=== PATIENT | male | born 1955 | race Caucasian/White ===

== ENCOUNTER 2023-07-06 11:43 | Emergency (ER) | payer MEDICARE, BC, SELFPAY ==
[2023-07-06] VITALS (7 sets, daily range): BP systolic 113–137; BP diastolic 70–86; BMI 26.1
--- NOTE | 2023-07-06 14:58 | ED.GENMED ---
History of Present Illness
General
Chief Complaint: Musculo-Skeletal Complaint
Source: patient
Exam Limitations: none
Time Seen by Provider: 07/06/23 12:49
Nursing documentation reviewed up to this point in time: agreed with
Travel History
Have you had any contact with someone who has COVID-19?: No
Do you have any symptoms of coronavirus? Fever > 100 degrees, chills, cough, shortness of breath, sore throat, loss of taste or smell, muscle aches, or headache?: No
History of Present Illness
History of Present Illness:
Patient presents to ED secondary to possible right shoulder dislocation, after he heard popping sensation when he was moving lacrosse rebound stand. Denies direct trauma. Denies loss of sensation or weakness. Patient had 1 additional episode of
dislocation last year, which resolved spontaneously. Patient did receive right shoulder surgery at [facility] last year.
Past History
Past History
ED Past Medical History: Arrthythmia (afib), GERD and HTN
ED Past Surgical History: Cardiac (ablation, pacemaker), Orthopedic and Other (hernia repair, silicone implant right eye)
Review of Systems
Review of Systems
Allergies reviewed?: Yes
All Other Systems: ROS reviewed and negative except as documented in HPI and ROS
Constitutional: Reports no symptoms
Musculoskeletal: Reports other (Shoulder pain)
Skin: Reports no symptoms
Neurological: Reports no symptoms; Denies weakness or numbness
Phy Exam
Physical Exam
Physical Exam:
Physical Exam
General: mild painful distress, not acutely ill. afebrile
Head: nc/at. eomi
Neck: supple. no meningeal signs.
Neuro: alert and oriented. no focal neurological deficits
Skin: no rash
Psychiatric: well kept. interactive and cooperative
Extremities: right shoulder soft tissue defect with tenderness to palpation.
Course
Orders/Labs/Results
Orders:
Orders
07/06/23 11:53
CR Shoulder, Trauma - Right Urgent
Comment:
Reason For Exam: injury/pain
07/06/23 13:05
Propofol [Diprivan] 20 ml .ROUTE .STK-MED
07/06/23 13:36
CR Shoulder - Right Min 2 View Urgent
Comment: portable
Reason For Exam: post reduction
Vital Signs
Initial and Last Documented VS:
Initial Vital Signs
Temp Pulse Resp BP Pulse Ox
97.9 F 69 16 137/86 97
07/06/23 11:47 07/06/23 11:47 07/06/23 11:47 07/06/23 11:47 07/06/23 11:47
Last Documented Vital Signs
Temp Pulse Resp BP Pulse Ox
98.2 F 61 18 123/76 97
07/06/23 14:10 07/06/23 14:10 07/06/23 14:10 07/06/23 14:10 07/06/23 14:10
Procedures
Moderate Sedation
ASA Risk Score: Class I
Chart and allergies reviewed: Yes
Consent for anesthesia obtained: Yes
Time out completed (validating right patient & procedure): Yes
History of difficult intubation: No
Airway free of obstruction: Yes
Patient has a gag reflex: Yes
Patient is able to open mouth: Yes
Patient has no dentures: Yes
Patient has no loose teeth: Yes
Medication administered by Provider during Moderate Sedation: IV Propofol (mg)
Total dose administered: 130
Time drug administered: 13:24
Start Time: 13:24
Stop Time: 13:40
Joint/Fracture Reduction
Right Shoulder:
Indication for procedure:: Shoulder dislocation
Procedure completed by: Arie Beth M.D.
Consent form signed: Yes
Anesthesia/sedation: Moderate sedation
Injury was: closed
Further treatement: no treatment needed
Post reduction exam: stable
Capillary Refill: normal
Normal distal neurovascular exam?: Yes
MDM/Problems Addressed
MDM/Problems Addressed:
X-ray report reviewed.
Procedural consent on the chart.
Shoulder successfully reduced after sedation and with external rotation
Patient placed on arm sling and is neurovascular intact, at time of discharge to the care of his . Patient will follow-up with his orthopedic surgeon as an outpatient. Patient given copy of x-ray on disc prior to discharge.
*Critical Care Note
Total Time (30-74mins, 75-104mins- exclusive of procedures): Not Applicable
ED Attending Note
-
Portions of this chart may have been created with voice recognition software.� Occasional wrong word or��sound alike� substitutions may have occurred due to the inherent limitations of voice recognition software.
Discharge Plan
Departure
Patient Disposition: Home (Routine Discharge)
Date of Disposition: 07/06/23
Time of Disposition: 14:58
Patient with high blood pressure during this ER visit?: Yes
Discharge Problem:
Dislocation of shoulder
Instructions: Shoulder Dislocation (DC), How to Use a Shoulder Sling
Referrals:
Sheila Calderón, [Family Provider] -
Activity Restrictions/Additional Instructions:
As discussed, please follow-up with your orthopedic surgeon for further evaluation and treatment.
Interventions
Interventions:
*Risk Screen - Suicide Last Done: 07/06/23 11:47
*General Assessment Last Done: 07/06/23 12:33
*Neglect/Abuse Screening Last Done: 07/06/23 11:47
ED- Fall Risk Assessment Last Done: 07/06/23 13:45
*ED COVID-19 Vaccine History Last Done: 07/06/23 11:47
*Nursing Disposition Last Done: 07/06/23 15:07
ED-Musculoskeletal Assessment Last Done: 07/06/23 12:35
Discharge Date and Time
Discharge Date/Time: 07/06/23 15:08
Print Language: FRISIAN
== END 2023-07-06 15:08 | disposition home or self-care (01) ==
LOC: EMR 11:43
PROVIDERS: EMERGENCY PHYSICIAN Emergency Medicine; FAMILY PHYSICIAN Family Medicine
DX: S43.004A Unspecified dislocation of right shoulder joint, initial encounter (principal); X58.XXXA Exposure to other specified factors, initial encounter; I48.91 Unspecified atrial fibrillation; K21.9 Gastro-esophageal reflux disease without esophagitis; I10 Essential (primary) hypertension; Z95.0 Presence of cardiac pacemaker; Z96.611 Presence of right artificial shoulder joint
CPT/HCPCS: 99283; 23650; 99152; 73030

== ENCOUNTER 2023-12-02 14:03 | Emergency (ER) | payer MEDICARE, BC, SELFPAY ==
[2023-12-02] VITALS (17 sets, daily range): BP systolic 114–147; BP diastolic 59–91; BMI 27.0
--- NOTE | 2023-12-02 14:50 | ED.GENMED ---
History of Present Illness
<Gerardo Daniels PA-C - Last Filed: 12/02/23 21:01>
General
Chief Complaint: Musculo-Skeletal Complaint
Time Seen by Provider: 12/02/23 14:46
History of Present Illness
History of Present Illness:
68-year-old male presents to the emergency department for evaluation of right shoulder injury, he was attempting to lift a heavy bag from his body when he felt his shoulder dislocate. 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 In
2 weeks he is scheduled for revision surgery at [facility].
Past History
<ERNESTO Russo Last Filed: 12/02/23 21:01>
Past History
ED Past Medical History: Arrthythmia (afib), GERD and HTN
ED Past Surgical History: Cardiac (ablation, pacemaker), Orthopedic and Other (hernia repair, silicone implant right eye)
Review of Systems
<ERNESTO Russo Last Filed: 12/02/23 21:01>
Review of Systems
Allergies reviewed?: Yes
All Other Systems: ROS reviewed and negative except as documented in HPI and ROS
Phy Exam
<ERNESTO Russo Last Filed: 12/02/23 21:01>
Physical Exam
Physical Exam:
GEN: Well appearing, NAD, WDWN
HEENT: Oral mucosa moist, no scleral icterus
Cardiac: Regular rate
Lung: No respiratory distress, no tachypnea
MSK: Obvious deformity of the right shoulder consistent with dislocation, sensation to the axillary nerve distribution is intact in right hand range of motion is normal
Skin: Good color, no pallor or jaundice, no rashes
Neuro: AO x3, moves all extremities freely
Psych: Calm, cooperative
Course
<ERNESTO Russo Last Filed: 12/02/23 21:01>
Orders/Labs/Results
Orders:
Orders
12/02/23 14:48
CR Shoulder - Right Min 2 View Urgent
Comment:
Reason For Exam: dislocation
12/02/23 15:40
Propofol [Diprivan] 20 ml .ROUTE .STK-MED
12/02/23 16:08
HYDROmorphone [Dilaudid] 0.5 mg IV NOW STA
12/02/23 16:55
HYDROmorphone [Dilaudid] 0.5 mg IV NOW STA
12/02/23 18:16
HYDROmorphone [Dilaudid] 0.5 mg IV NOW STA
Vital Signs
Initial and Last Documented VS:
Initial Vital Signs
Temp Pulse Resp Pulse Ox
98.0 F 67 16 98
12/02/23 14:14 12/02/23 14:14 12/02/23 14:14 12/02/23 14:14
Last Documented Vital Signs
Temp Pulse Resp BP Pulse Ox
97.6 F 69 27 142/83 95
12/02/23 16:20 12/02/23 17:51 12/02/23 17:51 12/02/23 18:24 12/02/23 16:35
<Arie Beth MD - Last Filed: 12/02/23 16:11>
Orders/Labs/Results
Orders:
Orders
12/02/23 14:48
CR Shoulder - Right Min 2 View Urgent
Comment:
Reason For Exam: dislocation
12/02/23 15:40
Propofol [Diprivan] 20 ml .ROUTE .STK-MED
12/02/23 16:08
HYDROmorphone [Dilaudid] 0.5 mg IV NOW STA
12/02/23 16:55
HYDROmorphone [Dilaudid] 0.5 mg IV NOW STA
12/02/23 18:16
HYDROmorphone [Dilaudid] 0.5 mg IV NOW STA
Vital Signs
Initial and Last Documented VS:
Initial Vital Signs
Temp Pulse Resp Pulse Ox
98.0 F 67 16 98
12/02/23 14:14 12/02/23 14:14 12/02/23 14:14 12/02/23 14:14
Last Documented Vital Signs
Temp Pulse Resp BP Pulse Ox
97.6 F 69 27 142/83 95
12/02/23 16:20 12/02/23 17:51 12/02/23 17:51 12/02/23 18:24 12/02/23 16:35
Procedures
<Gerardo Daniels PA-C - Last Filed: 12/02/23 21:01>
Moderate Sedation
ASA Risk Score: Class II
Chart and allergies reviewed: Yes
Consent for anesthesia obtained: Yes
Time out completed (validating right patient & procedure): Yes
Moderate Sedation Start Time(when first medication is given): 15:55
History of difficult intubation: No
Airway free of obstruction: Yes
Patient has a gag reflex: Yes
Patient is able to open mouth: Yes
Patient has no dentures: Yes
Patient has no loose teeth: Yes
Medication administered by Provider during Moderate Sedation: IV Propofol (mg)
Total dose administered: 200
Time drug administered: 15:55
Moderate Sedation Procedure End Time: 16:05
Joint/Fracture Reduction
Right Shoulder:
Indication for procedure:: dislocated R total shoulder prosthesis
Procedure completed by: Gerardo Daniels PA-C
Consent form signed: Yes
Joint reduced: with anesthesia sedation
Injury was: closed
Further treatement: needs further treatment
Additional information:
Unsuccessful reduction
<Gerardo Daniels PA-C - Last Filed: 12/02/23 21:01>
MDM/Problems Addressed
MDM/Problems Addressed:
Reduction was unsuccessful. I initially discussed the case with orthopedics locally who recommend we discussed with the patient's orthopedist at [facility]. Eventually I was able to communicate with on-call nurse practitioner through [facility] for patient's orthopedic surgeon Dr. Ramirez, after lengthy discussion the plan will be to discharge the patient to the care of his to drive him to the hospital where orthopedics will attempt closed reduction in the emergency
department there followed by open reduction if necessary. Patient remained stable at time of discharge
<Gerardo Daniels PA-C - Last Filed: 12/02/23 21:01>
*Critical Care Note
Total Time (30-74mins, 75-104mins- exclusive of procedures): Not Applicable
ED Attending Note
<Gerardo Daniels PA-C - Last Filed: 12/02/23 21:01>
-
Portions of this chart may have been created with voice recognition software.� Occasional wrong word or��sound alike� substitutions may have occurred due to the inherent limitations of voice recognition software.
<Arie eBth MD - Last Filed: 12/02/23 16:11>
ED Attending Note
Patient seen and examined by attending physician: Yes
ED Attending Note:
Patient presents to ED secondary to recurrent right shoulder dislocation, shortly prior to arrival. As patient has had number of similar symptoms in the past, along with previous shoulder surgery, patient is scheduled for revision with her
orthopedic surgeon next month. Denies direct trauma. Denies loss of sensation or weakness.
Physical Exam
General: mild painful distress, not acutely ill. afebrile
Head: nc/at. eomi
Neck: supple. no meningeal signs.
Neuro: alert and oriented. no focal neurological deficits
Skin: no rash
Psychiatric: well kept. interactive and cooperative
Extremities: diffuse right shoulder tenderness to palpation, along with well-healed surgical scar.
History, exam, and x-ray consistent with recurrent dislocation. Procedural consent on the chart.
Shoulder reduction attempted in ED after sedation, without success. Will consult orthopedic surgery
Discharge Plan
Departure
Patient Disposition: Home (Routine Discharge)
Date of Disposition: 12/02/23
Time of Disposition: 17:55
Patient with high blood pressure during this ER visit?: No
Discharge Problem:
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
Referrals:
NONE,* [Active] -
Activity Restrictions/Additional Instructions:
Lamont was given a total of 200mg propofol with unsuccessful attempt at reduction
Interventions
Interventions:
*Risk Screen - Suicide Last Done: 12/02/23 15:00
*General Assessment Last Done: 12/02/23 15:00
*Neglect/Abuse Screening Last Done: 12/02/23 18:45
ED- Fall Risk Assessment Last Done: 12/02/23 18:45
*ED COVID-19 Vaccine History Last Done: 12/02/23 15:00
*Nursing Disposition Last Done: 12/02/23 18:45
ED-Musculoskeletal Assessment Last Done: 12/02/23 16:32
Discharge Date and Time
Discharge Date/Time: 12/02/23 18:45
Print Language: PASHTO
[2023-12-02] MEDS: DILAUDID 0.5 MG IV ×3 (16:11→18:26)
== END 2023-12-02 18:45 | disposition home or self-care (01) ==
LOC: EMR 14:03
PROVIDERS: EMERGENCY PHYSICIAN Emergency Medicine; FAMILY PHYSICIAN Family Medicine
DX: T84.028A Dislocation of other internal joint prosthesis, initial encounter (principal); X50.0XXA Overexertion from strenuous movement or load, initial encounter; Y79.2 Prosthetic and other implants, materials and accessory orthopedic devices associated with adverse incidents; Z96.611 Presence of right artificial shoulder joint
CPT/HCPCS: 99285; 96374; 23650; 96376; 99152; 73030

== ENCOUNTER → 2024-04-06 08:51 | Day surgery (SDC) | payer MEDICARE, BC, SELFPAY ==
[2024-04-06 10:38] LABS: % Basophils 1.6 % (0-2); % Eosinophils 2.7 % (0-6); % Immature Granulocytes 0.2 % (0-0.5); % Lymphocytes 40.8 % (20.5-51.1); % Neutrophils 44.7 % (42.2-75.2); Absolute Basophils 0.1 10^3/uL (0-0.2); Absolute Eosinophils 0.1 10^3/uL (0-0.7); Absolute Lymphocytes 1.8 10^3/uL (1.2-3.4); Absolute Monocytes 0.5 10^3/uL (0.1-0.6); Hematocrit 41.4 % (39.0-52.0); Hemoglobin 14.6 g/dL (13.0-18.0); Mean Corp Hgb Conc. 35.3 g/dL (33.0-37.0); Mean Corpuscular Hgb 32.8 pg (27.0-31.0); Mean Platelet Volume 10.2 fL (7.4-10.4); Nucleated Red Blood Cells % 0 % (-); Platelet Count 228 10^3/uL (130-400); Red Blood Cell Count 4.45 10^6/uL (4.70-6.10); Red Cell Dist. Width 12.1 % (11.5-14.5); White Blood Cell Count 4.5 10^3/uL (4.8-10.8)
[2024-04-06 12:11] LABS: Blood Urea Nitrogen 25 mg/dl (9-20); Calcium 9.4 mg/dl (8.4-10.2); Carbon Dioxide 26 mmol/L (22-30); Chloride 100 mmol/L (98-107); Glucose 83 mg/dl (70-99); Potassium 4.8 mmol/L (3.5-5.1); Sodium 137 mmol/L (135-145); eGFR > 60.00
== END ==
LOC: SDSPAT 08:51
PROVIDERS: ATTENDING PHYSICIAN Orthopaedic Surgery; FAMILY PHYSICIAN Family Medicine
DX: Z01.810 Encounter for preprocedural cardiovascular examination (principal); Z01.812 Encounter for preprocedural laboratory examination; I44.0 Atrioventricular block, first degree
CPT/HCPCS: 93005; 36415; 80048; 85025

== ENCOUNTER 2024-04-18 05:56 | Day surgery (SDC) | payer MEDICARE, BC, SELFPAY ==
[2024-04-06 13:33] VITALS: BMI 25.9
[2024-04-18] VITALS (10 sets, daily range): BP systolic 101–120; BP diastolic 6–82; BMI 25.9
[2024-04-18] MEDS: TYLENOL 1000 MG PO (06:34)
[2024-04-18] MEDS: CELEBREX 200 MG PO (06:34)
[2024-04-18] MEDS: NORMOSOL-R/PLASMALYTE-A 1000 IV (06:34)
[2024-04-18] MEDS: SUBLIMAZE 25 MCG IV ×2 (08:31→08:43)
--- NOTE | 2024-04-18 09:20 | SUR.PHASEI ---
patient in pacu - initially sedate with oral airway in place, vss, paced rhythm. awake and airway out. laughing, joking, ' how much can I get for pain?' questioned what pain level is - states 6/10 - also states this is what pain was at home -
taking tramadol. Explained that he has received narcotics and local. Given Fentanyl 25mcg x2 for pain - pain down to 2/10 - anxious for coffee.
--- NOTE | 2024-04-18 15:20 | OR.RPT ---
Operative Report
Operative Report
DATE OF OPERATION: 04/18/2024
PREOPERATIVE DIAGNOSES: Complex medial meniscus tear, left knee
POSTOPERATIVE DIAGNOSES: Same
OPERATION PERFORMED: Surgical arthroscopy of left knee with partial medial meniscectomy
SURGEON: Dung De Leon MD
ASSISTANTS: NA
ANESTHESIA: General
COMPLICATIONS: None
SPECIMINE: culture x1
ESTIMATED BLOOD LOSS: 5mL
TOURNIQUET TIME: NA
Findings: See below
INDICATIONS: The patient presented to my office with acute onset posteromedial left knee pain with limited range of motion after an injury. Exam showed pain over medial joint line with effusion. Xrays showed no signs of advanced arthritis. MRI
showed a complex tear of the medial meniscus with displaced fragment to meniscofemoral recess. MRI showed signs of minimal areas of full thickness wear. Signs and symptoms were consistent with diagnosis of symptomatic medial meniscus tear. The
patient failed to improve with nonoperative treatmetns and was determined to be an appropriate candidate for surgical arthroscopy of the left knee with partial medial meniscectomy. I discussed treatment options with the patient including both
nonoperative and operative treatments. Shared decision was to proceed with surgical treatment. We reviewed the natural history of the problem, as well as the risks, benefits, and alternatives of various treatment options. The patient understood the
risks including, but were not limited to, bleeding, infection, failure to relieve pain, more pain than preop, damage to blood vessels and nerves, need for reoperation, , wound healing problems, stiffness, instability, blood clot, pulmonary
embolism, myocardial infarction, pneumonia, arrhythmia, CVA, and . The patient accepted these risks and wished to proceed. We discussed that his MRI did show some articular cartilage wear which may cause chronic arthritis-related pain, but that
his acute more severe symptoms seemed consisted with his displaced meniscus tear.
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 We discussed sending a fluid sample for culture.
PROCEDURE IN DETAIL: The patient was identified in the preoperative holding area. The operative limb was identified and marked with my initials. The patient was taken in the operating room and placed in a supine position on the operating table.
General anesthesia was performed. IV antibiotics were given. A gel pad was placed under the contralateral limb. A well-padded tourniquet was placed on the operative thigh. All bony prominences were well padded. The operative limb was prepped and
draped in the usual sterile fashion.
We performed a surgical time-out. The knee was aspirated of 5mL of yellow translucent synovial fluid which was sent for p.acnes testing to microbiology lab with instructions to keep 2 weeks. The knee was injected with a solution of 20mL of 0.25%
bupivacaine with 1mg of epinepherine. The portal sites were marked and injected with local anesthetic. The skin was incised over the lateral portal site and a trochar was introduced with care not to damage interarticular structures. The camera was
inserted, and a medial portal was made under direct visualization. A diagnostic arthroscopy was performed which showed the following:
Medial compartment: Mensicus tear in anterior body-horn junction with large displaced fragment in meniscofemoral recess, undersurface tearing of posterior horn and root, articular cartilage showed scattered partial thickness and areas of full
thickess wear. Inflamed synovium in anteromedial gutter.
Notch: ACL/PCL intact
Lateral compartment: No signs of lateral meniscus tear, articular cartilage intact over femoral condyle and tibia plateau.
Patellofemoral compartment: Partial thickness patellar and trochlear wear with areas of full thickness trochlear wear.
Medial and lateral Gutters: No signs of loose bodies
Attention was turned to the medial compartment. The displaced fragment was reduced into the joint with a prode. A combination of shaver and meniscal biter were used to debride the meniscus tear to a smooth border. Approximately 20% of meniscus
remained about the anterior horn body junction. About 80% remained posteriorly. Care was taken not to cause further injury to the articular cartilage or other structures. Inflamed synovium was also debrided. Loose articular cartilage was removed as
well from the medial femoral condyle.
The knee was irrigated and drained of excess fluid. The portals were closed with 3-0 proline suture in [id number] fashion. Sterile dressings and an madison bandage were applied. The knee was injected with 10mL of 0.25% bupivicaine with epi and 40mg
triamcinolone.
The patient awoke from anesthesia without any difficulties. The sponge and instrument counts were correct at the end of the case. I was present and participated in the entire procedure.
Andi De Leon MD
== END 2024-04-18 09:56 | disposition home or self-care (01) ==
LOC: SDS 05:56
PROVIDERS: ATTENDING PHYSICIAN Orthopaedic Surgery
PROC: 0SBD4ZZ Excision of Left Knee Joint, Percutaneous Endoscopic Approach (ICD-10-PCS; 2024-04-18)
DX: S83.232A Complex tear of medial meniscus, current injury, left knee, initial encounter (principal); X58.XXXA Exposure to other specified factors, initial encounter
CPT/HCPCS: 29881; 87075

== ENCOUNTER 2024-08-31 05:54 | Inpatient (IN) | payer MEDICARE, BC, SELFPAY ==
--- NOTE | 2024-08-07 12:06 | CM ---
CM reviewed medical records. CM spoke with patient via live telephone. Patient confirmed demographics. Patient lives independently with in a two story home. Patient has had a history of VN, but is currently not on services. Patient has not been
to SNF. Patient has a cane and walker. Patient is active with his PCP. Patient has medication coverage.
Patient has a preference for [facility] in [place]. CM encourage patient to make an appointment on September 04 for outpatient PT.
CM discussed hydration and bowel regiment.
PLAN: Home with outpatient PT.
[2024-08-14 13:48] VITALS: BMI 26.7
[2024-08-14 14:02] LABS: Hematocrit 41.6 % (39.0-52.0); Hemoglobin 15.1 g/dL (13.0-18.0); Mean Corp Hgb Conc. 36.3 g/dL (33.0-37.0); Mean Corpuscular Hgb 34.6 pg (27.0-31.0); Mean Corpuscular Volume 95.4 fL (80.0-94.0); Platelet Count 227 10^3/uL (130-400); Red Blood Cell Count 4.36 10^6/uL (4.70-6.10)
[2024-08-14 14:23] LABS: ALT (SGPT) 84 U/L (0-50); AST (SGOT) 71 U/L (17-59); Albumin 4.7 g/dl (3.5-5.0); Alkaline Phosphatase 73 U/L (38-126); Blood Urea Nitrogen 20 mg/dl (9-20); Carbon Dioxide 25 mmol/L (22-30); Chloride 105 mmol/L (98-107); Estimated Creatinine Clearance 65 ml/min; Glucose 102 mg/dl (70-99); Potassium 4.3 mmol/L (3.5-5.1); Sodium 138 mmol/L (135-145); Total Bilirubin 0.9 mg/dl (0.2-1.3); Total Protein 6.8 g/dl (6.3-8.2); eGFR > 60.00
[2024-08-14 14:59] VITALS: BMI 26.7
[2024-08-31] VITALS (20 sets, daily range): BP systolic 100–137; BP diastolic 48–90; PULSE 66; O2SAT 94; BMI 26.7
[2024-08-31] MEDS: CELEBREX 200 MG PO (06:29)
[2024-08-31] MEDS: NORMOSOL-R/PLASMALYTE-A 1000 IV (06:30)
[2024-08-31] MEDS: TYLENOL 650 MG PO (06:30)
--- NOTE | 2024-08-31 09:17 | OR.RPT ---
Operative Report
Operative Report
Orthopaedic Surgery Operative Note
DATE OF OPERATION: 08/31/2024
PREOPERATIVE DIAGNOSES: Osteoarthritis, left knee.
POSTOPERATIVE DIAGNOSES: Osteoarthritis, left knee.
OPERATION PERFORMED: Left total knee arthroplasty.
SURGEON: Dung De Leon MD
ASSISTANTS: Lambert Lozano PA-C who assisted with patient and limb positioning and retraction
ANESTHESIA: Spinal
COMPLICATIONS: None.
ESTIMATED BLOOD LOSS: 30mL
DRAINS: None
TOURNIQUET TIME: 44 minutes.
IMPLANTS:
- Manuelito Persona CR Femur, size 11
- Manuelito Persona tibia base plate, size F
- Manuelito Persona ultracongruent articular surface, 14 mm
- All-polyethylene patellar component, size 35
INDICATIONS: The patient presented to my office with debilitating left knee pain due to osteoarthritis. We reviewed the natural history of this problem, as well as the risks, benefits, and alternatives of various treatment options. The patient
exhausted all nonoperative treatment options and wished to proceed with knee replacement surgery. The patient understood the risks which included, but were not limited to, bleeding, infection, failure to relieve pain, more pain than preop, damage to
blood vessels and nerves, need for reoperation, mechanical failure of the implants, wound healing problems, stiffness, instability, blood clot, pulmonary embolism, myocardial infarction, pneumonia, arrhythmia, CVA, and . The patient accepted
these risks and wished to proceed. All questions were answered, and informed consent was obtained.
PROCEDURE IN DETAIL: The patient was identified in the preoperative holding area. The left knee was identified as the operative site. The patient was taken in the operating room and placed in a supine position on the operating table. Spinal
anesthesia was performed. IV antibiotics and tranexamic acid were administered. A bump was placed under the left hemipelvis. A well-padded tourniquet was placed on the proximal thigh. All bony prominences were well padded. The left lower extremity
was prepped and draped in the usual sterile fashion.
We performed a surgical time-out. An interarticular block was performed with local anesthetic with epinephrine. The limb was exsanguinated with an Esmarch bandage, then the tourniquet was inflated to 250 mmHg. A midline skin incision was made
followed by a medial parapatellar arthrotomy. A subperiosteal peel was performed on the medial tibia. I excised part of the infrapatellar fat pad to improve our visualization as well as tissue over anterior femur. The patella was everted and the
knee was flexed. I excised the remnants of the anterior and posterior cruciate ligaments as well as tibial and femoral osteophytes with rongeurs.
The knee was flexed, and the extramedullary tibial cutting guide was aligned. Sandoval was aligned at neutral, rotation was centered on the tibial tubercle, and coronal alignment was aligned with the mechanical axis of the tibia and center of the ankle
joint. The cut height was 10mm off the lateral tibia joint surface. The guide was secured into place. The MCL and LCL were protected. The tibia surface was cut. The cut surface was inspected after removal to ensure appropriate height and slope based
on the preoperative plan. The cut was checked with a drop anil. It was centered nicely at the ankle.
A drill was used to open the femoral canal. The intramedullary distal femoral cutting guide was inserted into the femur. This was set at 5 degrees +0. This was secured into place with three pins. The cut level was checked with an krishna wing. The
distal femur was cut through the cutting guide. The IM guide was reinserted to double check that the level of resection was flush and in appropriate alignment.
Placer�s line and the transepicondylar axis were marked on the femur. The femoral sizing guide was applied to the anterior femur. Pins were inserted, and the 4-in-1 cutting guide was applied and secured into place. The rotation was compared to
Placer�s line, the transepicondylar axis, and the neutral tibia cut and was found to be appropriate. The width was checked and found to be appropriate and lateralized on the femur. The anterior, posterior, and chamfur cuts were made. A lamina
metal cut off saw operator was used to open the flexion gap, and posterior osteophytes were removed with a curved osteotome. The remnant medial and lateral meniscus were also removed. I prophylactically cauterized the lateral geniculate arteries. A 10mm spacer block
was applied to the flexion gap and was noted to be balanced medially and laterally. The knee was extended, and the block showed symmetric to extension and flexion gaps.
The tibia was exposed and sized. Rotation was set in line with the tibial tubercle and congruent with the femur. The trial was secured into place with two pins. The trial femur was impacted into place, and a trial articular surface was placed. The
knee was taken through range of motion and noted to be stable throughout the arc of motion without gaping or excess tension. In extension, a measured resection of the patella was performed. The patella was sized, and lug holes were drilled. A trial
patella component was applied, and it was noted to track centrally throughout the arc of motion without need for further releases.
The trials were removed. The tibia keel was prepared with the punch and the drill. The bone surfaces were irrigated with sterile saline and dried. The cement was mixed in a vacuum mixer. Cement gun was used to apply cement to the tibial surface and
the undersurface of the tibial implant. Cement was pressurized into the tibial canal and tibia surface. The tibial component was impacted into place. Excess cement was removed. Cement was applied to the femoral surface and the femoral component. The
femoral component was impacted into place, and excess cement removed. A trial articular surface was inserted, and the knee was extended while the cement polymerized. The tourniquet was let down, and meticulous hemostasis was achieved. Dilute
betadine was poured into the wound and allowed to soak for 3 minutes. The knee was irrigated with copious normal saline.
Once the cement was polymerized, the trial articular surface was removed. Any excess cement was removed. The knee was trialed, and the final articular surface was selected and inserted into the tibial locking mechanism. The knee was reduced. A fresh
drape was applied to the surgical field.
The arthrotomy was closed with 0-PDS. Once closed, an interarticular block was performed with local anesthetic with epi. The deep dermal layer was closed with 2-0 PDS, and the subcuticular skin was closed with 3-0 monocryl. A Dermabond Prineo
dressing was applied to the skin in full flexion. Once this was completely dry, a sterile waterproof dressing was applied.
The anesthesia team performed an adductor canal block in the OR. The patient awoke from anesthesia without any difficulties. The sponge and instrument counts were correct x2 at the end of the case.
Andi De Leon MD
[2024-08-31] MEDS: ROXICODONE 5 MG PO ×2 (09:27→22:48)
[2024-08-31] MEDS: DILAUDID 0.5 MG IV ×2 (09:27→11:02)
[2024-08-31] MEDS: DILAUDID 0.25 MG IV ×3 (09:51→11:53)
[2024-08-31] MEDS: TORADOL 15 MG IV (12:34)
[2024-08-31] MEDS: NEURONTIN 300 MG PO ×2 (12:49→20:01)
--- NOTE | 2024-08-31 13:35 | PTCARENOTE ---
Pt arrived to 2S in bed. Full assessment completed. LLE mepilex C/D/I. B/L LEs with decreased sensation, pt reports hx of neuropathy. Pulses weak to palpation, neurovascular assessment otherwise WDL. IFV infusing per order. Bed locked and in the
lowest position. Pt instructed to ring for assistance with ambulation and to order breakfast tonight for early tomorrow morning. Oriented to room and call palma, pt left to work with PT Sho.
[2024-08-31] MEDS: NORVASC PO (13:41)
--- NOTE | 2024-08-31 13:47 | W.PN.UPDATE ---
Update Note
Progress Note Update
L knee OA s/p L TKA w/ Dr De Leon 08/31/24
- s/p R TKA, 2009, R TSA and subsequent R TSA revision due to periprosthetic infection
- EARLY DISCHARGE
DVT prophylaxis - ASA, b/l venous foot pumps
HTN - + parameters - monitor BP
A fib/flutter off OAC and PPM - monitor rhythm on tele
- Continue BB
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
- IV Ancef yovany-op w/ transition back to PCN
- Continue probiotic
COPD with history of tobacco abuse - monitor O2
- IS
- Resume inhaler
- Duoneb prn
- Decadron to help w/ breathing
GERD - continue PPI therapy
FLD w/ elevated LFTs - minimize Tylenol and other hepatotoxic agents
- Will stress decreasing alcohol use
Antalgic gait
Indwelling spinal cord stimulator
Spinal stenosis w/ DDD
- Fall precautions
- Work w/ PT and OT as able
Daily alcohol - reported 2-3 drinks daily
- Monitor for s/sx of potential withdrawal
- Will advise minimizing alcohol use, especially while on Oxycodone for post-op pain
HLD
Melanoma in situ
[2024-08-31] MEDS: ROXICODONE 10 MG PO ×2 (13:59→18:48)
[2024-08-31] MEDS: MAGNESIUM OXIDE 500 MG PO (14:00)
[2024-08-31] MEDS: PROTONIX 40 MG PO (14:00)
[2024-08-31] MEDS: ANCEF 5 IV ×2 (14:01→22:03)
[2024-08-31] MEDS: NSS 1000 IV (14:02)
[2024-08-31] MEDS: ORETIC PO (15:07)
[2024-08-31] MEDS: BENICAR PO (15:07)
[2024-08-31] MEDS: ASPIRIN 325 MG PO (17:20)
[2024-08-31] MEDS: FLORASTOR PO (20:00)
[2024-08-31] MEDS: DECADRON 4 MG PO (20:01)
[2024-08-31] MEDS: SENOKOT 17.2 MG PO (20:01)
[2024-08-31] MEDS: COLACE 100 MG PO (20:01)
[2024-08-31] MEDS: BACTROBAN 2% OINTMENT 1 APPLIC NASAL (20:02)
[2024-08-31] MEDS: CRESTOR 40 MG PO (22:03)
[2024-08-31] MEDS: TOPROL XL 50 MG PO (22:03)
[2024-09-01] MEDS: ROXICODONE 5 MG PO ×2 (02:51→06:00)
[2024-09-01 03:25] VITALS: BP 143/70
[2024-09-01] MEDS: SPIRIVA RESPIMAT 2.5 MCG 2 PUFF INH (07:04)
[2024-09-01] MEDS: STRIVERDI RESPIMAT 2 PUFF INH (07:05)
[2024-09-01] MEDS: DECADRON 4 MG PO (07:10)
[2024-09-01] MEDS: MOBIC 15 MG PO (07:10)
[2024-09-01] MEDS: SENOKOT 17.2 MG PO (07:10)
[2024-09-01] MEDS: COLACE 100 MG PO (07:10)
[2024-09-01] MEDS: BENICAR 40 MG PO (07:10)
[2024-09-01] MEDS: FLORASTOR 250 MG PO (07:10)
[2024-09-01] MEDS: MAGNESIUM OXIDE 500 MG PO (07:10)
[2024-09-01] MEDS: PROTONIX 40 MG PO (07:10)
[2024-09-01] MEDS: ASPIRIN 325 MG PO (07:11)
[2024-09-01] MEDS: NEURONTIN 300 MG PO (07:11)
[2024-09-01] MEDS: BACTROBAN 2% OINTMENT 1 APPLIC NASAL (07:17)
[2024-09-01] MEDS: ROXICODONE 10 MG PO (07:18)
[2024-09-01] MEDS: NORVASC 2.5 MG PO (07:18)
[2024-09-01] MEDS: ORETIC 12.5 MG PO (07:20)
--- NOTE | 2024-09-01 08:31 | W.PN.ORTHO ---
Today's Communication / Plan
-
Await PT and OT recs.
D/c early today if remaining clinically stable.
Assessment
.
Distal Motor Intact: Yes
Dressing:
Clean, dry and intact.
Assessment:
L knee OA s/p L TKA w/ Dr De Leon 08/31/24
- s/p R TKA, 2009, R TSA and subsequent R TSA revision due to periprosthetic infection
- EARLY DISCHARGE
DVT prophylaxis - ASA, b/l venous foot pumps
HTN - + parameters - BPs overall stable
A fib/flutter off OAC and PPM - rhythm stable on tele
- Continue BB
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
- IV Ancef yovany-op w/ transition back to PCN. PCN to be given prior to d/c today.
- Continue probiotic
COPD with history of tobacco abuse - O2 stable on RA
- IS
- Resumed inhaler
- Duoneb prn; not needed thankfully.
- Decadron to help w/ breathing
GERD - continue PPI therapy
FLD w/ elevated LFTs - minimize Tylenol and other hepatotoxic agents
- Stress decreasing alcohol use
Antalgic gait
Indwelling spinal cord stimulator
Spinal stenosis w/ DDD
- Fall precautions
- Work w/ PT and OT as able
Daily alcohol - reported 2-3 drinks daily
- No s/sx of potential withdrawal during admission
- Will advise minimizing alcohol use, especially while on Oxycodone for post-op pain
HLD
Melanoma in situ
Plan
.
Surgery / Date: L TKA w/ Dr De Leon 08/31/24
DVT Prophylaxis: Aspirin
Activity:
Out of bed.
PT/OT
Discharge Plan: Home w/ Outpatient PT
Subjective
.
.:
Patient resting comfortably.
Working w/ OT currently.
Denies any new acute complaints. Pain reportedly tolerable w/ current pain meds.
Eager for potential early d/c today.
Vital Signs and Labs
.
Vital Signs and Labs:
Lab Results
08/14/24 13:28
08/14/24 13:28
Temp Pulse Resp BP Pulse Ox
97.7 F 68 20 147/76 97
09/01/24 03:25 09/01/24 07:18 09/01/24 07:09 09/01/24 07:18 09/01/24 07:09
Non-invasive Hgb result: 14.9
Physical Exam
-
HEENT: No pallor, cyanosis, or jaundice. Throat clear.
NECK: Supple. No JVD.
RESPIRATORY: Lungs clear to auscultation.
CVS: S1, S2 normal. RRR.�
ABDOMEN: Soft, non-tender. No distension.
EXTREMITIES: Expected post-surgical L knee edema. Strength equal. No calf pain with palpation/dorsiflexion. Calves soft.
[employer] SUPERINTENDENT: AOx3. No focal deficits. lottery clerk grossly intact
--- NOTE | 2024-09-01 08:44 | W.DS.TRANS ---
DC Summary - Sales Representative Supervisor
-
Discharge Instructions:
Sleep Apnea Risk Low
Discharge Diagnosis/Procedures L knee OA s/p L TKA w/ Dr De Leon 08/31/24
Diet Regular
Activity With Walker,As tolerated
Additional Activity Adequate hydration, minimize Oxycodone, and wear
TEDs stockings to prevent low blood pressure/
dizziness
Driving Restrictions Not until seen by your Dr
Bathing Restrictions OK to Shower
Other Services PT
Wound Care Dressing to be removed at 2 week follow-up with
surgeon's office.
Instructions:
Stand-Alone Forms: Total Hip/Knee Replacement D/C
Changes to Home Medications: Yes
Discharge Medications:
DC Medications w/original date entered in [facility]
Bp8 Probiotic 1 dose PO DAILY Supplement 04/11/24
metoprolol succinate 50 mg tablet,extended release 24 hr 50 mg PO HS Blood Pressure 04/11/24
omeprazole 40 mg capsule,delayed release 40 mg PO DAILY GERD 04/11/24
penicillin V potassium 500 mg tablet 500 mg PO BID Infection 04/11/24
umeclidinium 62.5 mcg-vilanterol 25 mcg/actuation powdr for inhalation (Anoro Ellipta) 1 inh inhalation DAILY Lung/Breathing Issues 04/11/24
rosuvastatin 40 mg tablet 40 mg PO HS High Cholesterol 04/18/24
magnesium oxide 500 mg PO DAILY Supplement 08/11/24
mupirocin 2 % topical ointment 1 applic topical BID infection prevention #1 tube 08/14/24
dexamethasone 4 mg tablet 4 mg PO BID inflammation #6 tabs 08/15/24
gabapentin 300 mg capsule 300 mg PO BID sleep/pain #20 caps 08/15/24
meloxicam 15 mg tablet 15 mg PO DAILY anti-inflammatory #14 tabs 08/15/24
oxycodone 5 mg tablet 5 mg PO Q6H PRN 1 tab moderate pain, 2 tabs severe pain #30 tabs 08/15/24
amlodipine 5 mg tablet 2.5 mg (1/2 x 5 mg) PO DAILY Blood Pressure #1 tab 09/01/24
aspirin 325 mg tablet 325 mg PO DAILY #30 tabs 09/01/24
docusate sodium 100 mg capsule 100 mg PO BID #30 caps 09/01/24
magnesium hydroxide 400 mg/5 mL oral suspension (Milk of Magnesia) 15 ml PO HS PRN Constipation #3,000 mL 09/01/24
olmesartan 40 mg-hydrochlorothiazide 12.5 mg tablet 1 tab PO DAILY Blood Pressure #1 tab 09/01/24
ondansetron HCl 4 mg tablet 4 mg PO Q6H PRN nausea and vomiting #30 tabs 09/01/24
sennosides 8.6 mg tablet ([place]) 17.2 mg (2 x 8.6 mg) PO BID #30 tabs 09/01/24
Home Medication Changes
dexamethasone 4 mg tablet 4 mg PO BID inflammation #6 tabs 08/15/24
gabapentin 300 mg capsule 300 mg PO BID sleep/pain #20 caps 08/15/24
meloxicam 15 mg tablet 15 mg PO DAILY anti-inflammatory #14 tabs 08/15/24
oxycodone 5 mg tablet 5 mg PO Q6H PRN 1 tab moderate pain, 2 tabs severe pain #30 tabs 08/15/24
aspirin 325 mg tablet 325 mg PO DAILY #30 tabs 09/01/24
docusate sodium 100 mg capsule 100 mg PO BID #30 caps 09/01/24
magnesium hydroxide 400 mg/5 mL oral suspension (Milk of Magnesia) 15 ml PO HS PRN Constipation #3,000 mL 09/01/24
ondansetron HCl 4 mg tablet 4 mg PO Q6H PRN nausea and vomiting #30 tabs 09/01/24
sennosides 8.6 mg tablet ([place]) 17.2 mg (2 x 8.6 mg) PO BID #30 tabs 09/01/24
Pending Results: Yes (Hep C antibody)
[2024-09-01 08:53] VITALS: BP 137/65; BP 141/79; PULSE 67; O2SAT 99
[2024-09-01 08:55] LABS: Hepatitis C Antibody Negative (Negative)
[2024-09-01 09:11] VITALS: BP 137/65; PULSE 66; O2SAT 99
--- NOTE | 2024-09-01 09:17 | CM ---
Cm met with patient in room. Patient has confirmed his outpatient PT appointment. IMM given. No further needs
PLAN: home with outpatient PT.
[2024-09-01] MEDS: PEN VK 500 MG PO (09:22)
--- NOTE | 2024-09-01 10:04 | PTCARENOTE ---
Discharge orders received from physician. PT/OT and CM signed off. Reviewed discharge paperwork with pt; Heart monitor and IV removed. Discharged to home.
== END 2024-09-01 09:45 | disposition home or self-care (01) | DRG 470 ==
LOC: 2 SOUTH 05:54
PROVIDERS: Physician Assistant Medical; ADMITTING PHYSICIAN Orthopaedic Surgery; FAMILY PHYSICIAN Family Medicine; REFERRING PHYSICIAN Emergency Medicine
PROC: 0SRD0J9 Replacement of Left Knee Joint with Synthetic Substitute, Cemented, Open Approach (ICD-10-PCS; 2024-08-31)
DX: M17.12 Unilateral primary osteoarthritis, left knee (principal); I48.92 Unspecified atrial flutter; I10 Essential (primary) hypertension; I48.91 Unspecified atrial fibrillation; J44.9 Chronic obstructive pulmonary disease, unspecified; Z87.891 Personal history of nicotine dependence; K76.0 Fatty (change of) liver, not elsewhere classified; K21.9 Gastro-esophageal reflux disease without esophagitis; E78.00 Pure hypercholesterolemia, unspecified; E78.5 Hyperlipidemia, unspecified; M48.00 Spinal stenosis, site unspecified; Z91.048 Other nonmedicinal substance allergy status; Z96.611 Presence of right artificial shoulder joint
CPT/HCPCS: 36415; 73560; 80053; 83036; 85027; 86803; 87070; 94640; 97110; 97116; 97162; 97166; 97535